=== PATIENT | male | born 1950 | race Caucasian/White ===

== ENCOUNTER 2019-02-15 17:49 | Inpatient (IN) | payer MEDICARE ==
[~2019-02-15] VITALS: Ht 182.9 cm; Wt 117.3 kg
[2019-02-15] MEDS ORDERED: normal saline 1000ML IV soln IVB ONE (18:00)
[2019-02-15 18:15] LABS: ABG HCO3 28.2 mmol/L (22.0-26.0); ABG OXYGEN SATURATION 92.4 % (95-98); ABG PCO2 (T) 40.6 mmHg (35.0-45.0); ABG PH (T) 7.459 (7.350-7.450); ABG PO2 (T) 59.5 mmHg (83-108); ALLEN'S TEST Positive; FCOHb 1.3 % (0.5-1.5); FO2Hb 91.2 % (94-100)
[2019-02-15 18:40] LABS: ALANINE AMINOTRANSFERASE 29 U/L (12-78); ALBUMIN 3.4 G/DL (3.4-5.0); ALBUMIN/GLOBULIN RATIO 0.9 (1.1-1.5); ALKALINE PHOSPHATASE 113 IU/L (46-116); ANION GAP 8 (8-16); ASPARTATE AMINO TRANSFERASE 16 U/L (10-37); BILIRUBIN,TOTAL 0.4 MG/DL (0.1-1.0); BLOOD UREA NITROGEN 20 MG/DL (7-18); BUN/CREATININE RATIO 18.7 (5.4-32.0); CALCIUM 8.8 MG/DL (8.5-10.1); CHLORIDE 104 MMOL/L (99-107); CREATININE 1.07 MG/DL (0.60-1.10); GLUCOSE 97 MG/DL (70-104); POTASSIUM 3.9 MMOL/L (3.5-5.1); SODIUM 142 MMOL/L (135-145); TOTAL CARBON DIOXIDE 30.1 MMOL/L (24-32); TOTAL PROTEIN 7.3 G/DL (6.4-8.2); eGFR 69 ML/MIN
[2019-02-15 18:41] LABS: PARTIAL THROMBOPLASTIN TIME 54 SECONDS (22-32)
[2019-02-15 18:44] LABS: BASOPHILS % (AUTO) 0.1 % (0-1); EOSINOPHILS # (AUTO) 0.1 X10'3 (0-0.9); EOSINOPHILS % (AUTO) 1.3 % (0-6); HEMATOCRIT 46.9 % (42.0-52.0); HEMOGLOBIN 15.3 g/dl (14.0-17.9); LYMPHOCYTES # (AUTO) 1.5 X10'3 (1.1-4.8); LYMPHOCYTES % (AUTO) 17.8 % (21-51); MEAN CORPUSCULAR HEMOGLOBIN 27.8 PG (27.0-31.0); MEAN CORPUSCULAR HGB CONC 32.6 g/dL (33.0-36.5); MEAN CORPUSCULAR VOLUME 85.5 FL (78-98); MEAN PLATELET VOLUME 9.8 FL (7.4-10.4); MONOCYTES # (AUTO) 0.7 X10'3 (0-0.9); MONOCYTES % (AUTO) 7.7 % (2-12); NEUTROPHILS # (AUTO) 6.2 X10'3 (1.8-7.7); NEUTROPHILS % (AUTO) 73.1 % (42-75); PLATELET COUNT 168 X10'3 (140-440); RED BLOOD COUNT 5.49 X10'6 (4.70-6.10); RED CELL DISTRIBUTION WIDTH 14.5 % (11.5-14.5); WHITE BLOOD COUNT 8.5 X10'3 (4.5-11.0)
--- NOTE | 2019-02-15 18:45 | NUR ---
Pt in no acute distress. Denies CP, no c/o SOB.
[2019-02-15] MEDS ORDERED: SYN0.088T PO (19:25)
[2019-02-15] MEDS ORDERED: HYDR-4353 PO (19:25)
[2019-02-15] MEDS ORDERED: OMEP40CA13 PO (19:25)
[2019-02-15] MEDS ORDERED: IBUP-1984 PO (19:25)
[2019-02-15] MEDS ORDERED: TERA5CAP4 PO (19:25)
[2019-02-15] MEDS ORDERED: TIZA4TAB11 PO (19:25)
[2019-02-15] MEDS ORDERED: DONE-46 PO (19:25)
[2019-02-15] MEDS ORDERED: TRAZ-219 PO (19:25)
[2019-02-15] MEDS ORDERED: BENA1TAB14 PO (19:25)
--- NOTE | 2019-02-15 20:15 | NUR ---
Pt with no complaints of chest pain or SOB. No s/sx of respiratory distress.
--- NOTE | 2019-02-15 21:06 | NUR ---
Verbal order from Dr. Sharon bay for Pt to take night home meds at bedside. Pt took Terazosin 10 mg and Donepezil 5 mg.
[2019-02-15] MEDS ORDERED: ondansetron/PF 4mg/2ml inj IV PRN (21:45)
[2019-02-15] MEDS ORDERED: magnesium hydroxide 30ml (MOM) UD suspension PO PRN (21:45)
[2019-02-15] MEDS ORDERED: morphine 2 MG/ML inj. syringe IV PRN ×2 (21:45)
[2019-02-15] MEDS ORDERED: acetaminophen 325mg tablet PO PRN ×2 (21:45)
[2019-02-15] MEDS ORDERED: mag hydrox/Alum hydrox/simeth 30ml oral suspension PO PRN (21:45)
--- NOTE | 2019-02-15 22:05 | NUR ---
Pt stable with no complaints of pain or SOB.
[2019-02-15 22:45] VITALS: BP 162/97
[2019-02-16] MEDS ORDERED: temazepam 15mg capsule PO ONE (00:05)
[2019-02-16] MEDS ORDERED: enoxaparin 100mg/ml syringe SUBCUT ONE ×2 (00:05→00:40)
[2019-02-16] MEDS ORDERED: enoxaparin 60mg/0.6ml syringe SUBCUT ONE ×2 (00:50→08:00)
[2019-02-16 02:00] VITALS: BP 128/75
--- NOTE | 2019-02-16 05:57 | NUR ---
report given to deandra Marie.
[2019-02-16 06:00] VITALS: BP 117/76
[2019-02-16 06:10] LABS: BASOPHILS % (AUTO) 0.3 % (0-1); EOSINOPHILS # (AUTO) 0.2 X10'3 (0-0.9); HEMATOCRIT 43.3 % (42.0-52.0); HEMOGLOBIN 14.3 g/dl (14.0-17.9); LYMPHOCYTES # (AUTO) 1.4 X10'3 (1.1-4.8); LYMPHOCYTES % (AUTO) 18.8 % (21-51); MEAN CORPUSCULAR HGB CONC 33.1 g/dL (33.0-36.5); MEAN CORPUSCULAR VOLUME 84.5 FL (78-98); MEAN PLATELET VOLUME 9.9 FL (7.4-10.4); MONOCYTES # (AUTO) 0.7 X10'3 (0-0.9); MONOCYTES % (AUTO) 9.1 % (2-12); NEUTROPHILS # (AUTO) 5.3 X10'3 (1.8-7.7); NEUTROPHILS % (AUTO) 69.8 % (42-75); PLATELET COUNT 161 X10'3 (140-440); RED BLOOD COUNT 5.12 X10'6 (4.70-6.10); RED CELL DISTRIBUTION WIDTH 14.5 % (11.5-14.5); WHITE BLOOD COUNT 7.5 X10'3 (4.5-11.0)
--- NOTE | 2019-02-16 06:15 | NUR ---
Patient in room [facility]TH[facility] 4013. I have received report from [facility] and had the opportunity to ask questions and assume patient care.
[2019-02-16] MEDS: HYDROchlorothiazide 25mg tablet PO SCH (07:38)
[2019-02-16] MEDS: terazosin 5mg capsule PO SCH ×2 (07:38→21:24)
[2019-02-16] MEDS: pantoprazole 40mg Tablet.DR PO SCH (07:38)
[2019-02-16] MEDS: lisinopril 20mg tablet PO SCH (07:39)
[2019-02-16] MEDS: levoTHYROXINE 25mcg tablet PO SCH (07:39)
[2019-02-16] MEDS: levoTHYROXINE 100mcg tablet PO SCH (07:51)
[2019-02-16] MEDS ORDERED: insulin Lispro (HumaLOG) vial - multi-dose SQ SCH (08:00)
[2019-02-16] MEDS ORDERED: dextrose ORAL solution 15 GM/59 ML bottle PO PRN ×2 (08:00)
[2019-02-16] MEDS ORDERED: dextrose 50%-water 50ml dispensing syringe IV PRN ×2 (08:00)
[2019-02-16] MEDS ORDERED: MESSAGE TO PHARMACY PO ONE (08:00)
[2019-02-16] MEDS ORDERED: glucagon, human recombinant 1mg kit SUBCUT PRN (08:00)
[2019-02-16] MEDS ORDERED: levoTHYROXINE 88mcg tablet PO SCH (08:00)
[2019-02-16 08:56] LABS: HEMOGLOBIN A1C 5.3 % (4.5-6.2)
[2019-02-16 10:00] VITALS: BP 117/75
[2019-02-16] MEDS: HYDROcodone/acetaminophen 5mg/325mg tablet PO PRN ×2 (10:34→21:03)
[2019-02-16] MEDS: enoxaparin 60mg/0.6ml syringe SUBCUT SCH ×2 (12:21→21:22)
[2019-02-16] MEDS ORDERED: azithromycin/NS 500mg/250ml 250 ML IV ONE (13:00)
[2019-02-16] MEDS: CefTRIAXone/D5W-Rocephin 1gm 50 ML IV SCH (13:13)
--- NOTE | 2019-02-16 13:35 | NUR ---
DM Consult: Pt A1C <7 and not appropriate for DM ed at this time. Will continue to monitor. Addendum: 02/16/19 at [address] Amended: Links added.
[2019-02-16 18:00] VITALS: BP 143/79
--- NOTE | 2019-02-16 18:00 | NUR ---
Problems reprioritized. Patient report given, questions answered & plan of care reviewed with Cordelia RIOS.
[2019-02-16] MEDS: insulin glargine (Lantus) pen - multi-dose SQ SCH (21:00)
[2019-02-16] MEDS ORDERED: temazepam 15mg capsule PO PRN (21:00)
[2019-02-16] MEDS: lactobacillus rhamnosus 10,000 MMU CELLS/CAPSULE PO SCH (21:21)
[2019-02-16] MEDS: traZODone 50mg tablet PO SCH (21:23)
[2019-02-16] MEDS: donepezil 5mg tablet PO SCH (21:23)
[2019-02-16] MEDS: tizanidine 4mg tablet PO SCH (21:24)
[2019-02-16 22:00] VITALS: BP 97/52
[2019-02-17 06:00] VITALS: BP 96/52
--- NOTE | 2019-02-17 06:20 | NUR ---
Patient in room ORTHO 4013. I have received report from Cordelia RIOS and had the opportunity to ask questions and assume patient care.
--- NOTE | 2019-02-17 06:32 | NUR ---
Problems reprioritized. Patient report given, questions answered & plan of care reviewed with Cynthia RIOS.
[2019-02-17 06:35] LABS: BASOPHILS % (AUTO) 0.2 % (0-1); EOSINOPHILS # (AUTO) 0.2 X10'3 (0-0.9); EOSINOPHILS % (AUTO) 1.9 % (0-6); HEMATOCRIT 42.4 % (42.0-52.0); HEMOGLOBIN 13.8 g/dl (14.0-17.9); LYMPHOCYTES # (AUTO) 1.8 X10'3 (1.1-4.8); LYMPHOCYTES % (AUTO) 22.3 % (21-51); MEAN CORPUSCULAR HEMOGLOBIN 27.7 PG (27.0-31.0); MEAN CORPUSCULAR HGB CONC 32.6 g/dL (33.0-36.5); MEAN PLATELET VOLUME 9.8 FL (7.4-10.4); MONOCYTES # (AUTO) 0.8 X10'3 (0-0.9); MONOCYTES % (AUTO) 9.6 % (2-12); NEUTROPHILS # (AUTO) 5.5 X10'3 (1.8-7.7); PLATELET COUNT 161 X10'3 (140-440); RED BLOOD COUNT 4.99 X10'6 (4.70-6.10); WHITE BLOOD COUNT 8.3 X10'3 (4.5-11.0)
[2019-02-17] MEDS: azithromycin 250mg tablet PO SCH (08:00)
[2019-02-17] MEDS: terazosin 5mg capsule PO SCH ×2 (08:00→20:05)
[2019-02-17] MEDS: pantoprazole 40mg Tablet.DR PO SCH (08:11)
[2019-02-17] MEDS: levoTHYROXINE 100mcg tablet PO SCH (08:11)
[2019-02-17] MEDS: levoTHYROXINE 25mcg tablet PO SCH (08:11)
[2019-02-17] MEDS: lisinopril 20mg tablet PO SCH (08:12)
[2019-02-17] MEDS: HYDROchlorothiazide 25mg tablet PO SCH (08:12)
[2019-02-17] MEDS: lactobacillus rhamnosus 10,000 MMU CELLS/CAPSULE PO SCH ×2 (08:12→20:02)
[2019-02-17] MEDS: enoxaparin 60mg/0.6ml syringe SUBCUT SCH (08:13)
[2019-02-17] MEDS: CefTRIAXone/D5W-Rocephin 1gm 50 ML IV SCH (08:13)
[2019-02-17 09:46] LABS: ALANINE AMINOTRANSFERASE 36 U/L (12-78); ALBUMIN 3.2 G/DL (3.4-5.0); ALBUMIN/GLOBULIN RATIO 0.8 (1.1-1.5); ALKALINE PHOSPHATASE 104 IU/L (46-116); ANION GAP 7 (8-16); ASPARTATE AMINO TRANSFERASE 17 U/L (10-37); BILIRUBIN,TOTAL 0.5 MG/DL (0.1-1.0); BLOOD UREA NITROGEN 21 MG/DL (7-18); BUN/CREATININE RATIO 18.3 (5.4-32.0); CALCIUM 8.5 MG/DL (8.5-10.1); CHLORIDE 103 MMOL/L (99-107); CREATININE 1.15 MG/DL (0.60-1.10); GLUCOSE 90 MG/DL (70-104); POTASSIUM 3.8 MMOL/L (3.5-5.1); SODIUM 142 MMOL/L (135-145); TOTAL PROTEIN 7.3 G/DL (6.4-8.2); eGFR 64 ML/MIN
[2019-02-17 10:00] VITALS: BP 123/81
[2019-02-17] MEDS ORDERED: LIDOcaine/PRILOcaine 5gm cream TP ONE (14:50)
[2019-02-17 18:00] VITALS: BP 97/50
--- NOTE | 2019-02-17 18:05 | NUR ---
Problems reprioritized. Patient report given, questions answered & plan of care reviewed with Erin RIOS.
--- NOTE | 2019-02-17 18:15 | NUR ---
Patient in room ORTHO 4013. I have received report from Cynthia RIOS and had the opportunity to ask questions and assume patient care. Checked on patient, he is resting in bed. Will continue to monitor.
[2019-02-17] MEDS: tizanidine 4mg tablet PO SCH (20:02)
[2019-02-17] MEDS: traZODone 50mg tablet PO SCH (20:03)
[2019-02-17] MEDS: apixaban 5mg tablet PO SCH (20:05)
[2019-02-17] MEDS: donepezil 5mg tablet PO SCH (20:05)
[2019-02-17] MEDS: insulin glargine (Lantus) pen - multi-dose SQ SCH (21:00)
--- NOTE | 2019-02-17 21:00 | NUR ---
Did not check patient's BS. He has no history of diabetes. The endocrine issues he has are related to his thyroid. AIC is 5.2 and blood sugars have been within normal range since he has admission on 02/15.
[2019-02-17 22:00] VITALS: BP 115/66
[2019-02-18 06:00] VITALS: BP 123/77
[2019-02-18 06:17] LABS: BASOPHILS % (AUTO) 0.3 % (0-1); EOSINOPHILS # (AUTO) 0.2 X10'3 (0-0.9); EOSINOPHILS % (AUTO) 2.3 % (0-6); HEMATOCRIT 43.2 % (42.0-52.0); HEMOGLOBIN 14.1 g/dl (14.0-17.9); LYMPHOCYTES # (AUTO) 1.3 X10'3 (1.1-4.8); LYMPHOCYTES % (AUTO) 19.7 % (21-51); MEAN CORPUSCULAR HEMOGLOBIN 27.8 PG (27.0-31.0); MEAN CORPUSCULAR HGB CONC 32.7 g/dL (33.0-36.5); MEAN PLATELET VOLUME 9.6 FL (7.4-10.4); MONOCYTES # (AUTO) 0.6 X10'3 (0-0.9); MONOCYTES % (AUTO) 9.3 % (2-12); NEUTROPHILS # (AUTO) 4.6 X10'3 (1.8-7.7); NEUTROPHILS % (AUTO) 68.4 % (42-75); PLATELET COUNT 177 X10'3 (140-440); RED BLOOD COUNT 5.08 X10'6 (4.70-6.10); RED CELL DISTRIBUTION WIDTH 14.4 % (11.5-14.5); WHITE BLOOD COUNT 6.7 X10'3 (4.5-11.0)
--- NOTE | 2019-02-18 06:20 | NUR ---
Patient in room ORTHO 4013. I have received report from Erin RIOS and had the opportunity to ask questions and assume patient care.
--- NOTE | 2019-02-18 06:43 | NUR ---
Problems reprioritized. Patient report given, questions answered & plan of care reviewed with Latisha RIOS and Jack RIOS.
[2019-02-18 06:47] LABS: ALANINE AMINOTRANSFERASE 30 U/L (12-78); ALBUMIN/GLOBULIN RATIO 0.8 (1.1-1.5); ALKALINE PHOSPHATASE 96 IU/L (46-116); ANION GAP 6 (8-16); ASPARTATE AMINO TRANSFERASE 20 U/L (10-37); BILIRUBIN,TOTAL 0.3 MG/DL (0.1-1.0); BLOOD UREA NITROGEN 26 MG/DL (7-18); BUN/CREATININE RATIO 20.6 (5.4-32.0); CALCIUM 8.4 MG/DL (8.5-10.1); CHLORIDE 105 MMOL/L (99-107); CREATININE 1.26 MG/DL (0.60-1.10); GLUCOSE 91 MG/DL (70-104); POTASSIUM 3.8 MMOL/L (3.5-5.1); SODIUM 142 MMOL/L (135-145); TOTAL CARBON DIOXIDE 30.9 MMOL/L (24-32); TOTAL PROTEIN 6.7 G/DL (6.4-8.2); eGFR 57 ML/MIN
[2019-02-18] MEDS: CefTRIAXone/D5W-Rocephin 1gm 50 ML IV SCH (08:12)
[2019-02-18] MEDS: pantoprazole 40mg Tablet.DR PO SCH (08:13)
[2019-02-18] MEDS: lactobacillus rhamnosus 10,000 MMU CELLS/CAPSULE PO SCH (08:13)
[2019-02-18] MEDS: terazosin 5mg capsule PO SCH (08:13)
[2019-02-18] MEDS: apixaban 5mg tablet PO SCH (08:13)
[2019-02-18] MEDS: HYDROchlorothiazide 25mg tablet PO SCH (08:13)
[2019-02-18] MEDS: lisinopril 20mg tablet PO SCH (08:14)
[2019-02-18] MEDS: azithromycin 250mg tablet PO SCH (08:14)
[2019-02-18] MEDS: levoTHYROXINE 25mcg tablet PO SCH (08:17)
[2019-02-18] MEDS: HYDROcodone/acetaminophen 5mg/325mg tablet PO PRN (08:17)
[2019-02-18] MEDS: levoTHYROXINE 100mcg tablet PO SCH (08:17)
[2019-02-18 10:00] VITALS: BP 124/82
[2019-02-18] MEDS ORDERED: APIX5TAB3 PO (12:02)
--- NOTE | 2019-02-18 14:43 | NUR ---
Patient stable for DC home today with . All discharge instructions given to patient and . IV out and prescriptions called into [facility] in [place].
== END 2019-02-18 13:05 | disposition home or self-care (01) | DRG 175 ==
LOC: ER 17:52 → OBSVTOIN 22:23 → ORTHO 4S 22:23 → CMPBEDREQ 23:58
PROVIDERS: ADMIT Internal Medicine; ATTEND Family Medicine
PROC: 5A09357 Assistance with Respiratory Ventilation, Less than 24 Consecutive Hours, Continuous Positive Airway Pressure (ICD-10-PCS; principal; 2019-02-16)
PROC: 5A09357 Assistance with Respiratory Ventilation, Less than 24 Consecutive Hours, Continuous Positive Airway Pressure (ICD-10-PCS; 2019-02-18)
DX: I26.99 Other pulmonary embolism without acute cor pulmonale (principal); J96.01 Acute respiratory failure with hypoxia; E03.9 Hypothyroidism, unspecified; E11.9 Type 2 diabetes mellitus without complications; G47.33 Obstructive sleep apnea (adult) (pediatric); I10 Essential (primary) hypertension; G47.00 Insomnia, unspecified; G89.29 Other chronic pain; M54.9 Dorsalgia, unspecified; Z87.891 Personal history of nicotine dependence; Z90.49 Acquired absence of other specified parts of digestive tract; Z79.899 Other long term (current) drug therapy
CPT/HCPCS: 36415; 36600; 71045; 80053; 82803; 82948; 83036; 83880; 84443; 84484; 85018; 85025; 85610; 85730; 87081; 93005; 93306; 93970; 94760; 99285; G0378; J0456; J0696; J1650; J1815; J2270

== ENCOUNTER 2024-03-15 11:49 | Outpatient (CLI) | payer MEDICARE ==
[~2024-03-15 11:49] MED LIST: APIX5TAB3 PO; BENA1TAB14 PO; DONE-46 PO; HYDR-4353 PO; OMEP40CA21 PO; SYN0.088T PO; TERA5CAP4 PO; TIZA4TAB11 PO; TRAZ-256 PO
== END 2024-03-15 23:59 | disposition home or self-care (01) ==
LOC: RAD 11:49
PROVIDERS: ATTEND Internal Medicine Gastroenterology
DX: R13.10 Dysphagia, unspecified (principal)
CPT/HCPCS: 74220